=== PATIENT | male | born 2000 | race Caucasian/White ===

== ENCOUNTER 2020-05-15 19:14 | Emergency (ER) | payer OTHER ==
[2020-05-15 19:28] VITALS: BP 144/89; PULSE 80; RESP 16; TEMP 98.3
--- NOTE | 2020-05-15 19:45 | ED ---
Upper Extremity HPI - General Chief Complaint: Extremity Injury, Upper Stated Complaint: rt wrist injury Time Seen by Provider: 05/15/20 19:31 Source: patient, family, RN notes reviewed Mode of arrival: ambulatory Limitations: no limitations - History of Present Illness Initial Comments: This a 27-year-old male presents emergency Department chief complaint right wrist pain. Patient states that he punched a wall earlier today he has no hand pain states is on his wrists on Ulnar aspect. Patient is right-hand dominant. No prior fractures. Anesthesias out swelling noted - Related Data Allergies Allergy/AdvReac Type Severity Reaction Status Date / Time No Known Allergies Allergy Verified 05/15/20 19:28 Review of Systems ROS Statement: Those systems with pertinent positive or pertinent negative responses have been documented in the HPI. ROS Other: All systems not noted in ROS Statement are negative. Past Medical History Past Medical History: No Reported History History of Any Multi-Drug Resistant Organisms: None Reported Past Surgical History: No Surgical Hx Reported Additional Past Surgical History / Comment(s): wisdom teeth, Past Psychological History: No Psychological Hx Reported Smoking Status: Vaper Past Alcohol Use History: None Reported Past Drug Use History: Marijuana General Exam Limitations: no limitations General appearance: alert, in no apparent distress Head exam: Present: atraumatic, normocephalic, normal inspection Respiratory exam: Present: normal lung sounds bilaterally. Absent: respiratory distress, wheezes, rales, rhonchi, stridor Cardiovascular Exam: Present: regular rate, normal rhythm, normal heart sounds. Absent: systolic murmur, diastolic murmur, rubs, gallop, clicks Extremities exam: Present: other (Right hand neurovascular intact there is no pain or swelling., There is tenderness over the ulnar aspect of the right wrist, and minimal swelling neurovascular intact no obvious deformity no proximal forearm tenderness with range of motion) Course Vital Signs 05/15/20 19:24 Temperature 98.3 F Pulse Rate 80 Respiratory 16 Rate Blood Pressure 144/89 O2 Sat by Pulse 97 Oximetry - Reevaluation(s) Reevaluation #1: 05/15/20 19:45 Patient offered pain meds patient declines. Procedures - Orthopedic Splinting/Casting Injury #1 Side: right Upper Extremity Injury Location: short arm, wrist Upper Extremity Immobilizer: thumb spica, synthetic pre-padded splint Medical Decision Making - Medical Decision Making Patient's x-ray shows evidence of scaphoid fracture. Patient was splinted in a spica. Patient is neurovascularly intact he is instructed to follow-up tomorrow morning with orthopedics. He has seen Dr. Mosqueda in the past. Disposition Clinical Impression: Fracture of scaphoid of right wrist Disposition: HOME SELF-CARE Condition: Stable Instructions (If sedation given, give patient instructions): Scaphoid Fracture (ED) Additional Instructions: Follow-up with orthopedics in the morning.Please return to the Emergency Department if symptoms worsen or any other concerns. Is patient prescribed a controlled substance at d/c from ED?: No Referrals: Vielka Markham MD [Primary Care Provider] - 1-2 days Earnest Mosqueda DO [Doctor of Osteopathic Medicine] - 1-2 days Time of Disposition: 20:09
--- NOTE | 2020-05-15 19:52 | XR ---
EXAMINATION TYPE: XR wrist complete RT DATE OF EXAM: 05/15/2020 COMPARISON: NONE HISTORY: Wrist pain TECHNIQUE: FINDINGS: 4 views are obtained. There is nondisplaced fracture of the waist of the scaphoid bone. The re is separation of the fragments 1 mm. There is no dislocation. The visualized metacarpals are intac t. The distal radius and ulna appear intact. IMPRESSION: Acute nondisplaced fracture of the scaphoid bone.
== END 2020-05-15 20:36 | disposition home or self-care (01) ==
LOC: EC 19:14 → SUPCPDRO 19:14 → EC 20:36
DX: S62.001A Unspecified fracture of navicular [scaphoid] bone of right wrist, initial encounter for closed fracture (principal); W22.01XA Walked into wall, initial encounter
CPT/HCPCS: 29125; 99283